=== PATIENT | female | born 1965 | race Caucasian/White ===

== ENCOUNTER → 2020-03-20 | Outpatient (CLI) | payer OTHER, BC ==
--- NOTE | 2020-03-20 10:56 | KCIC ---
EXAMINATION: MRI LEFT KNEE WITHOUT CONTRAST CLINICAL HISTORY: Left lateral knee pain after injury falling from a dump truck recently. TECHNIQUE: Routine non-contrast MRI of the knee COMPARISON: Left knee radiographs 02/29/2020 FINDINGS: MENISCI: Medial Meniscus: Intact. Lateral Meniscus: Intact. LIGAMENTS: ACL: Intact PCL: Intact MCL: Intact LCL Complex: Intact CARTILAGE: Medial Femoral Condyle: Small area(s) of high grade (greater than 50% thickness) partial thickness cartilage loss and or fissuring Medial Tibial Plateau: Normal Lateral Femoral Condyle: Normal Lateral Tibial Plateau: Normal Patella: Large area(s) of full thickness cartilage loss/fissuring predominantly along the medial facet with subchondral marrow reactive/cystic changes Trochlea: Normal TENDONS: The distal quadriceps and patellar tendons are intact. The popliteus tendon is intact. BONES AND MARROW: Essentially nondisplaced impaction fracture in the fibular head with associated marrow edema and edema in the adjacent medial tibia. MUSCLES: Muscle bulk and signal intensity are normal. JOINT FLUID AND SYNOVIUM: No joint effusion. No synovitis. No Norris's cyst. IMPRESSION: Essentially nondisplaced impaction fracture in the fibular head. No discrete tear in the LCL complex. Advanced chondral wear in the patella. Electronically signed by: Tam Marcus DO (03/20/2020 10:53 AM) [id number]
== END ==
LOC: KCIC MRI 08:00
PROVIDERS: ATTEND Family Medicine
DX: S82.832D Other fracture of upper and lower end of left fibula, subsequent encounter for closed fracture with routine healing (principal); V85 Occupant of special construction vehicle injured in transport accident
CPT/HCPCS: 73721

== ENCOUNTER → 2020-06-06 | Outpatient (CLI) | payer OTHER, BC ==
--- NOTE | 2020-06-06 16:36 | KCIC ---
EXAMINATION: LOWER EXT JOINT WO LT INDICATIONS: Left knee pain posteriorly. Injured back in February. Evaluate for healing process.. TECHNIQUE: Multiplanar multisequence MRI of the left knee was obtained without contrast. COMPARISON: MRI left knee 03/20/2020 FINDINGS: MENISCI: The medial and lateral menisci are intact. LIGAMENTS: There is intermediate signal in the posterior cruciate tendon which could reflect sprain. The anterior cruciate ligament is intact. The medial collateral ligament and lateral collateral ligament complex including popliteus tendon are intact. EXTENSOR MECHANISM: The quadriceps and patellar tendons are intact. Mild edema in the suprapatellar fat pad. Hoffa's fat pad is normal.. Retinacula are intact. BONES AND CARTILAGE: The fibular head fracture has healed. There is no residual marrow edema. No new fracture. Unchanged areas of full-thickness cartilage loss at the median ridge and medial patellar facet, and areas of deep partial-thickness cartilage loss along the lateral patellar facet. Trochlear cartilage is intact. Unchanged areas of deep partial thickness cartilage loss along the medial femoral condyle with a superimposed full-thickness cartilage fissure along the posterior weightbearing surface. Superficial partial thickness cartilage loss along the anterior medial tibial plateau. No focal defect in the lateral compartment. OTHER: There is physiologic fluid in the joint. Trace leaking Norris cyst. IMPRESSION: 1. Intermediate signal in the posterior cruciate ligament could reflect sprain. 2. The fibular head fracture has healed. 3. Unchanged patellofemoral and medial compartment cartilage loss. Electronically signed by: Elda Rashid MD (06/06/2020 4:33 PM) [id number]
== END ==
LOC: KCIC MRI 09:14
PROVIDERS: ATTEND Family Medicine
DX: S89.92XD Unspecified injury of left lower leg, subsequent encounter (principal); X58.XXXD Exposure to other specified factors, subsequent encounter
CPT/HCPCS: 73721